=== PATIENT | male | born 1985 | race African-American/Black ===

== ENCOUNTER 2020-12-15 15:32 | Emergency (ER) | payer OTHER ==
[~2020-12-15] VITALS: Ht 170.2 cm; Wt 70.4 kg
[2020-12-15] MEDS ORDERED: HYDROcodone/APAP 10/325 1 TAB TABLET PO ONE (17:00)
[2020-12-15] MEDS ORDERED: BACITRACIN TOPICAL OINT PACKET. TP ONE (17:45)
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
[2020-12-15] MEDS ORDERED: DIPH,PERTUSS(ACELL),TET VAC/PF 0.5 ML SYRINGE. VAX IM ONE (19:00)
[2020-12-15 19:05] VITALS: BP 123/53
[2020-12-15] MEDS ORDERED: HYDR-2761 PO (19:10)
[2020-12-15] MEDS ORDERED: CYCL10TA2 PO (19:10)
[2020-12-15] MEDS ORDERED: IBUP-1007 PO (19:10)
[2020-12-15] MEDS ORDERED: CEPH500T PO (19:10)
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
== END 2020-12-15 19:19 | disposition home or self-care (01) ==
LOC: ER 15:32
DX: S60.221A Contusion of right hand, initial encounter (principal); S60.211A Contusion of right wrist, initial encounter; S50.11XA Contusion of right forearm, initial encounter; S00.81XA Abrasion of other part of head, initial encounter; V29.9XXA Motorcycle rider (driver) (passenger) injured in unspecified traffic accident, initial encounter; Y93.55 Activity, bike riding; Y92.89 Other specified places as the place of occurrence of the external cause; Y99.8 Other external cause status
CPT/HCPCS: 29125; 73090; 73110; 73130; 90471; 90715; 99284; A4565

== ENCOUNTER 2021-08-18 18:11 | Emergency (ER) | payer OTHER ==
[~2021-08-18] VITALS: Ht 170.2 cm; Wt 79.5 kg
[~2021-08-18 18:11] MED LIST: CEPH500T PO; CYCL10TA19 PO; HYDR-2761 PO; IBUP-1007 PO
[2021-08-18 18:36] VITALS: BP 112/75
[2021-08-18 19:38] LABS: AMORPHOUS SEDIMENT,UR PRESENT /HPF; BACTERIA,URINE 0 /HPF (0-FEW)
[2021-08-18] MEDS ORDERED: DOXY100C3 PO (19:56)
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
[2021-08-18] MEDS ORDERED: cefTRIAXone IM 500 MG VIAL. IM ONE (20:00)
== END 2021-08-18 20:10 | disposition home or self-care (01) ==
LOC: ER 18:11
DX: Z20.2 Contact with and (suspected) exposure to infections with a predominantly sexual mode of transmission (principal)
CPT/HCPCS: 81001; 87491; 87591; 96372; 99283; J0696